=== PATIENT | female | born 1935 | race Caucasian/White ===

== ENCOUNTER 2018-08-28 08:12 | Outpatient (CLI) | payer MEDICARE, MEDICAID ==
[2018-08-28] MEDS ORDERED: Lidocaine 2% Jelly 5 ML TUBE ONE (10:00)
[2018-08-28] MEDS ORDERED: Sodium Chloride 0.9% 15 ML NEB ONE (10:00)
--- NOTE | 2018-08-28 11:21 | HP ---
HISTORY OF PRESENT ILLNESS: Ms. 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 Apparentl y, the patient has been receiving dressing changes at [facility] for her right lateral lower le g wound. The patient was referred to the Wound Center by TIGRE Michel on 07/24/2018. The patien t is unable to answer any questions in regards to her medical history. The patient is also unaccompa nied by any family members or staff from [facility]. PAST MEDICAL HISTORY: 1. Hypertension. 2. Diabetes mellitus. 3. Congestive heart failure. 4. Hypothyroidism. 5. CVA with dysphagia. 6. Seizure disorder status post cerebrovascular accident. PAST SURGICAL HISTORY: Hip surgery. MEDICATIONS: 1. Acetaminophen. 2. Amlodipine. 3. Arginaid. 4. Artificial Tears. 5. Calcium. 6. Coreg. 7. Gabapentin. 8. Levetiracetam. 9. Metformin. 10. Pravastatin. 11. Quetiapine. 12. Senna plus. 13. Sertraline. 14. Valproic acid. 15. Vitamin C. 16. . ALLERGIES: No known diagnosed allergies. SOCIAL HISTORY: Negative for current tobacco or ETOH use. FAMILY HISTORY: Noncontributory. PHYSICAL EXAMINATION: VITAL SIGNS: Temperature 97.8, pulse 70, respirations 18, blood pressure 117/72. Accu-Chek 246. GENERAL: An 83-year-old female lying on stretcher in examination room in no acute distress. HEENT: Normocephalic, atraumatic. NECK: No nuchal rigidity. CHEST: Clear to auscultation. CARDIAC: Regular rate and rhythm. ABDOMEN: Soft. EXTREMITIES: An ulceration of the right lateral lower leg is present which measures approximately 6. 0 x 3.0 cm. Granulation tissue is present within the wound margins. Nonviable tissue was also prese nt within the wound margins. No purulent drainage is associated with the wound. No erythema of the skin surrounding the wound is present. No maceration of the skin of the periwound is noted. A dorsa lis pedis pulse or posterior tibial pulse is not palpable on the right. No significant edema of the right foot or lower leg is appreciated on exam today. ASSESSMENT AND PLAN: 1. Ulceration of right lateral lower leg. The healing of the ulceration also appears to be complica jessenia by arterial insufficiency and inadequate offloading. Orders will be transmitted to [facility] for dressing changes of Medihoney, 4 x 4s, ABD, Kerlix, and an Piotr bandage every other day or alt ernatively three times per week after cleansing and irrigation. Orders will also be transmitted to [facility] for a Heelift boot to be applied to the right foot and lower leg to facilitate offloa ding of both the right heel and right lateral lower leg. I will discuss the treatment plan with the patient's wound care nurse at [facility]. No antibiotics will be prescribed today based upon t he appearance of the wound. 2. Hypertension. 3. Diabetes mellitus. The patient's Accu-Chek in clinic today is 246. 4. Congestive heart failure. 5. Hypothyroidism. 6. Cerebrovascular accident with dysphagia. 7. Seizure disorder status post cerebrovascular accident.
== END 2018-08-28 08:13 | disposition home or self-care (01) ==
LOC: WCC 08:12
PROVIDERS: ATTEND Family Medicine
DX: E11.621 Type 2 diabetes mellitus with foot ulcer (principal); L97.919 Non-pressure chronic ulcer of unspecified part of right lower leg with unspecified severity; I11.0 Hypertensive heart disease with heart failure; I50.9 Heart failure, unspecified; E03.9 Hypothyroidism, unspecified; I69.991 Dysphagia following unspecified cerebrovascular disease; R13.10 Dysphagia, unspecified; G40.909 Epilepsy, unspecified, not intractable, without status epilepticus
CPT/HCPCS: 36416; A4218

== ENCOUNTER 2018-09-23 07:44 | Outpatient (CLI) | payer MEDICARE, MEDICAID ==
[2018-09-23 08:08] LABS: Estimated GFR-MDRD - POC Greater than 90
[2018-09-23] MEDS ORDERED: Iopamidol 370 76% 100 ML VIAL ONE (09:58)
--- NOTE | 2018-09-23 10:03 | CT ---
CT OF CHEST PERFORMED WITH ITNRAVENOUS CONTRAST ENHANCEMENT: HISTORY: Chest cough and congestion. Persistent opacity in the right lung base. COMPARISON: Chest x-rays of 09/04/2018 and 09/17/2018. The right hemidiaphragm is elevated. There are atelectatic changes within the right lower lobe which accounts for the opacity. The changes may largely be chronic in nature based on the elevation of th e hemidiaphragm. It could potentially be a minimal infiltrative process as there are some bronchogra ms seen. I do not see any type of obstructing endobronchial lesion. There is subsegmental atelectat ic change in the left base. No pulmonary nodules are identified. No significant mediastinal or hilar adenopathy. No significant axillary adenopathy. The visualized liver parenchyma shows o focal findings. Hypodensities within the kidneys are partial ly visualized, most likely cysts. IMPRESSION: 1. Elevated right hemidiaphragm with right lower lobe parenchymal change which is in the more cable cutter and swager ior aspect of the right lower lobe probably on the basis of atelectasis rather than infiltrate and ma y be chronic in nature given the presence of the elevated hemidiaphragm. POS: DEZ
== END 2018-09-23 07:45 | disposition home or self-care (01) ==
LOC: CT 07:44
PROVIDERS: ATTEND Internal Medicine
DX: R91.8 Other nonspecific abnormal finding of lung field (principal); Q79.1 Other congenital malformations of diaphragm
CPT/HCPCS: 71260; 82565